=== PATIENT | female | born 1950 | race Caucasian/White ===

== ENCOUNTER 2017-08-13 14:12 | Emergency (ER) | payer OTHER ==
[~2017-08-13] VITALS: Ht 157.5 cm; Wt 81.6 kg
[~2017-08-13 14:12] MED LIST: AMARYL1 MG PO; BACTROBAN OINT.30 GM TOP; BENICAR HCT 12.1 TA2 PO; BENICAR PO; CIPRO 500MG TA500 MG PO; CLEOCIN HCL300 MG PO; GLUMETZA500 MG PO; PHENERGAN25 M1 PO; SYNTHROID0.025 MG PO; ZOFRAN ODT4 MG PO
[2017-08-13 14:39] LABS: ABSOLUTE BASOPHIL COUNT 0.1 /CUMM (0.0-0.2); ABSOLUTE EOSINOPHIL COUNT 0.2 /CUMM (0.0-0.7); ABSOLUTE GRANULOCYTE CT 5.5 /CUMM (1.4-6.5); ABSOLUTE LYMPH COUNT 2.9 /CUMM (1.2-3.4); ABSOLUTE MONOCYTE COUNT 0.5 /CUMM (0.10-0.60); BASOPHIL % 0.6 % (0.0-2.0); EOSINOPHIL % 2.5 % (0-5); GRANULOCYTE % 59.9 % (42.2-75.2); HEMATOCRIT 44.7 % (37-47); MEAN CORPUSCULAR HGB 29.2 PG (27.0-31.0); MEAN CORPUSCULAR HGB CONC 33.5 G/DL (33.0-37.0); MEAN CORPUSCULAR VOLUME 87.2 FL (81.0-99.0); MEAN PLATELET VOLUME 8.9 FL (7.4-10.4); PLATELET COUNT 249 /CUMM (130-400); RBC DISTRIBUTION WIDTH 13.4 % (11.5-14.5); RED BLOOD CELL CT 5.13 /CUMM (4.20-5.40); WHITE BLOOD CELL COUNT 9.2 /CUMM (4.8-10.8)
--- NOTE | 2017-08-13 14:55 | RADIOLOGY REPORT ---
EXAMINATION: XR CHEST CLINICAL INFORMATION: Chest pain COMPARISON: Previous chest x-ray April 2014 TECHNIQUE: 2 views of the chest were obtained. FINDINGS: The cardiac and mediastinal contours are stable. There are median sternotomy wires and prosthetic aortic valve. The lungs are clear. There is no pleural effusion or pneumothorax. There are surgical clips that project over the left lower chest, probably in the left breast. There are degenerative changes of the spine. IMPRESSION: No evidence for acute disease in the chest.
--- NOTE | 2017-08-13 15:46 | ED CARDIAC/CP/PALPITATIONS ---
History of Present Illness General Chief Complaint: Chest Pain Stated Complaint: CHEST PAIN, UPPER BACK PAIN Source: patient Exam Limitations: no limitations Vital Signs & Intake/Output Vital Signs & Intake/Output Vital Signs Date Time Temp Pulse Resp B/P B/P Pulse O2 O2 Flow FiO2 Mean Ox Delivery Rate 08/13 1557 95.0 66 18 144/63 98 Room Air 08/13 1452 98 Room Air 08/13 1420 96.0 78 16 155/81 98 Room Air Allergies Coded Allergies: MDX - Latex (LATEX) (Intermediate, SKIN PROBLEMS 12/15/14) MDX - ASA (aspirin) (ASA (ASPIRIN)) (SOB 12/15/14) MDX - Cephalexin (From KEFLEX) (SOB, GI UPSET, RESP 12/15/14) MDX - Codeine (CODEINE) (SOB 12/15/14) MDX - Contrast Media, Iodine Relate (Contrast Media, Iodine Related) (IVP DYE, SOB AND HIVES 12/15/14) MDX - Hydrocodone (From VICODIN) (SOB 12/15/14) MDX - Propoxyphene (From Propoxyphene-N W/ Apap) (SOB 12/15/14) MDX - Oxycodone (OXYCODONE) (GI UPSET 12/15/14) MDX - Tetracycline (TETRACYCLINE) (GI UPSET, RESP 12/15/14) Reconcile Medications Ciprofloxacin (Cipro) 500 MG TAB 1 TAB PO BID UTI CLINDAMYCIN HCL (Cleocin HCl) 300 MG CAPSULE 1 CAP PO 4 TIMES/DAY abscess Glimepiride (Amaryl) 1 MG TAB 1 MG PO D DM (Reported) Hydrochliorthiazide/Olmesart (Benicar Hct 20-12.5 MG Tablet) 20 MG-12.5 MG TABLET 10 MG PO D PRN HTN (Reported) Levothyroxine (Synthroid) 0.025 MG TAB 50 MCG PO D THYROID (Reported) METFORMIN HCL (Glumetza) 500 MG [id number] 500 MG PO BID DM (Reported) Mupirocin (Bactroban Oint. 2% 30GM) 2 % CREAM..G. 1 SAMARIA TOP TID abscess apply to affected area(s) Olmesartan Medoxomil (Benicar) 5 MG TABLET 10 MG PO DAILY PRN IF NEEDED FOR BLOOD PRESSURE (Reported) Ondansetron (Zofran Odt) 4 MG ODT 1 TAB PO Q6P PRN NAUSEA Promethazine Hydrochloride (Phenergan) 25 MG TAB 1 TAB PO Q8P PRN NAUSEA Triage Note: 67 Y/O FEMALE C/O EPISODES OF CHEST PAIN SINCE THIS AM. STATES PAIN COMES AND GOES AND ONLY LASTS FOR A SHORT TIME WHEN IT OCCURS. STATES PAIN IS FELT IS CENTER CHEST WHEN IT HAPPENS, "IT FEELS LIKE HEART BURN BUT [place] NEVER HAD HEART BURN SO I DONT KNOW". PT DENIES CURRENT PAIN. DENIES SOB. DENIES NAUSEA, +BELCHING. DENIES DIAPHORESIS. EKG COMPLETED. BLOODWORK DRAWN BY [facility] Triage Nurses Notes Reviewed? yes HPI: 67-year-old female presents emergency department complaining of an episode of substernal chest pain this morning. Patient states the episode occurred around 9 AM. It woke her up from sleeping. It only lasted a few seconds. It did not radiate. She had a similar episode one week ago so she figured it was time to be evaluated. Patient has had a previous heart valve replacement approximately 9 years ago and currently has an appointment with her failure analysis engineer in 2 weeks. She is currently a symptomatic. Denies any nausea or vomiting. No fever or chills. No chest pain or shortness of breath. She has no abdominal pain. No leg swelling. Palpitations, or recent travel. (Alan Perkins PA-C) Past History Travel History Traveled to [place] past 21 day No Medical History Any Pertinent Medical History? see below for history Neurological: NONE EENT: NONE Cardiovascular: AORTIC VALVE TRANSPLANT Respiratory: NONE Gastrointestinal: NONE Hepatic: NONE Renal: NONE Musculoskeletal: CERVICAL SPINE FUSING Psychiatric: NONE Endocrine: diabetes, hypothyroidism Blood Disorders: DVT, PLATLET DEFICIENCY Cancer(s): breast cancer Surgical History Surgical History: D+C, CERVICAL SPINE SURGERY Psychosocial History Tobacco Use: Never used Family History Hx Contributory? No (Alan Perkins PA-C) Review of Systems Review of Systems Constitutional: Reports: no symptoms. EENTM: Reports: no symptoms. Respiratory: Reports: no symptoms. Cardiovascular: Reports: see HPI. GI: Reports: no symptoms. Genitourinary: Reports: no symptoms. Musculoskeletal: Reports: no symptoms. Skin: Reports: no symptoms. Neurological/Psychological: Reports: no symptoms. Hematologic/Endocrine: Reports: no symptoms. Immunologic/Allergic: Reports: no symptoms. All Other Systems: Reviewed and Negative (Gregorio VERA,Alan) Physical Exam Physical Exam General Appearance: well developed/nourished, no apparent distress, alert, awake Head: atraumatic, normal appearance Eyes: Bilateral: normal appearance. Ears, Nose, Throat: normal pharynx, normal ENT inspection Neck: supple, No jvd Respiratory: normal breath sounds, chest non-tender, no respiratory distress, quiet respiration, lungs clear Cardiovascular: regular rate/rhythm (No m/r/g) Gastrointestinal: normal bowel sounds, soft, non-tender, no organomegaly Extremities: normal inspection, normal range of motion Neurologic/Psych: alert, oriented x 3, normal gait Skin: intact, normal color Core Measures ACS in differential dx? Yes CVA/TIA Diagnosis No Sepsis Present: No Sepsis Focused Exam Completed? No (Alan Perkins PA-C) Progress Differential Diagnosis: AMI, aortic dissection, atrial fibrillation, costochondritis, hyperkalemia, musculoskeletal pain, pancreatitis, pneumonia, pneumothorax, pulmonary embolism, V-fib/V-Tach, GERD Plan of Care: Orders Procedure Date/time Status TROPONIN LEVEL 08/13 1423 Complete COMPREHENSIVE METABOLIC PANEL 08/13 1423 Complete CBC WITHOUT DIFFERENTIAL 08/13 1423 Complete EKG 08/13 1413 Active Laboratory Tests 08/13/17 1426: Anion Gap 12, Estimated GFR > 60, BUN/Creatinine Ratio 27.1 H, Glucose 179 H, Calcium 9.5, Total Bilirubin 0.5, AST 23, ALT 36, Alkaline Phosphatase 77, Troponin I < 0.01, Total Protein 6.6, Albumin 3.8, Globulin 2.8, Albumin/ Globulin Ratio 1.4, CBC w Diff NO MAN DIFF REQ, RBC 5.13, MCV 87.2, MCH 29.2, MCHC 33.5, RDW 13.4, MPV 8.9, Gran % 59.9, Lymphocytes % 31.1, Monocytes % 5.9, Eosinophils % 2.5, Basophils % 0.6, Absolute Granulocytes 5.5, Absolute Lymphocytes 2.9, Absolute Monocytes 0.5, Absolute Eosinophils 0.2, Absolute Basophils 0.1 Diagnostic Imaging: Viewed by Me: Radiology Read. Discussed w/RAD: Radiology Read. Radiology Impression: PATIENT: KALLIE DIALLO PRESENT AGE: 67 PATIENT ACCOUNT NO: [id number] : 48 LOCATION: [facility] ORDERING PHYSICIAN: Alan Perkins PA-C SERVICE DATE: 08/13/17 EXAM TYPE: RAD - XRY-CHEST XRAY, TWO VIEWS EXAMINATION: XR CHEST CLINICAL INFORMATION: Chest pain COMPARISON: Previous chest x-ray April 2014 TECHNIQUE: 2 views of the chest were obtained. FINDINGS: The cardiac and mediastinal contours are stable. There are median sternotomy wires and prosthetic aortic valve. The lungs are clear. There is no pleural effusion or pneumothorax. There are surgical clips that project over the left lower chest, probably in the left breast. There are degenerative changes of the spine. IMPRESSION: No evidence for acute disease in the chest. DICTATED BY: Rosie Lackey MD DATE/TIME DICTATED:08/13/171449 SHORE WORKING SUPERVISOR:BERNARDA DATE/TIME TRANSCRIBED:08/13/171449 CONFIDENTIAL, DO NOT COPY WITHOUT APPROPRIATE AUTHORIZATION. <Electronically signed in Other Vendor System> SIGNED BY: Rosie Lackey MD 08/13/171454 Initial ED EKG: NSR at 74 bpm. Normal axis. No acute ST/T wave abnormalities. Prior EKG: unchanged Comments: This is a 67-year-old female with report of a very brief few seconds of substernal chest pain this morning. She has been asymptomatic here in the emergency department. The pain did not radiate. It was nonexertional. It woke her up from sleep. Her EKG is unchanged from previous with normal sinus rhythm at 74 beats a minute. Her troponin is negative. Other lab work is nonactionable. Chest x-ray is normal. No concern for ACS/MA. No evidence of pneumonia. Doubt PE, dissection. Will have patient follow-up with her failure analysis engineer within 2 days. Encouraged her to return to the emergency department immediately with any new or worsening symptoms. She is in agreement plan of care. Discussed with Dr. Leal and he is in agreement with plan of care as well. (Gregorio VERA,Alan) Departure Departure Disposition: HOME OR SELF CARE Condition: Stable Clinical Impression Primary Impression: Chest pain Referrals: Braulio FREEMAN,Azar Williamson (PCP/Family) Additional Instructions: Your blood work was normal. Your EKG was unchanged from your previous. You should plan to follow-up with her failure analysis engineer this week. You should return to the emergency department immediately for any new or worsening symptoms. Departure Forms: Customer Survey General Discharge Information (Alan Perkins PA-C) PA/PATIENT SUPPORT TECH Co-Sign Statement Statement: ED Attending supervision documentation- x I saw and evaluated the patient. I have also reviewed all the pertinent lab results and diagnostic results. I agree with the findings and the plan of care as documented in the PA's/PATIENT SUPPORT TECH's documentation. [] I have reviewed the ED Record and agree with the PA's/PATIENT SUPPORT TECH's documentation. [] Additions or exceptions (if any) to the PAs/PATIENT SUPPORT TECH's note and plan are summarized below: [] (Mel FREEMAN,Abner) Critical Care Note Critical Care Note Critical Care Time: non-applicable (Gregorio VERA,Alan)
[2017-08-13 15:57] VITALS: BP 144/63
== END 2017-08-13 16:23 ==
LOC: ERH 14:12
PROVIDERS: Emergency Medicine
DX: R07.2 Precordial pain (principal); E11.9 Type 2 diabetes mellitus without complications; E03.9 Hypothyroidism, unspecified; Z79.84 Long term (current) use of oral hypoglycemic drugs
CPT/HCPCS: 71046; 93005; 93010

== ENCOUNTER 2017-08-20 17:25 | Emergency (ER) | payer OTHER ==
[~2017-08-20] VITALS: Ht 157.5 cm; Wt 79.4 kg
--- NOTE | 2017-08-20 20:08 | ED CARDIAC/CP/PALPITATIONS ---
History of Present Illness General Chief Complaint: Chest Pain Stated Complaint: CP, LET ARM PAIN Source: patient, family, old records Exam Limitations: no limitations Vital Signs & Intake/Output Vital Signs & Intake/Output Vital Signs Date Time Temp Pulse Resp B/P B/P Pulse O2 O2 Flow FiO2 Mean Ox Delivery Rate 08/21 2019 72 20 180/75 98 Room Air 08/20 1754 97.3 73 18 171/82 97 Room Air ED Intake and Output 08/21 0000 08/20 1200 Intake Total 0 Output Total Balance 0 Intake, Oral 0 Patient 175 lb Weight Weight Reported by Patient Measurement Method Allergies Coded Allergies: MDX - Latex (LATEX) (Intermediate, SKIN PROBLEMS 12/15/14) MDX - ASA (aspirin) (ASA (ASPIRIN)) (SOB 12/15/14) MDX - Cephalexin (From KEFLEX) (SOB, GI UPSET, RESP 12/15/14) MDX - Codeine (CODEINE) (SOB 12/15/14) MDX - Contrast Media, Iodine Relate (Contrast Media, Iodine Related) (IVP DYE, SOB AND HIVES 12/15/14) MDX - Hydrocodone (From VICODIN) (SOB 12/15/14) MDX - Propoxyphene (From Propoxyphene-N W/ Apap) (SOB 12/15/14) MDX - Oxycodone (OXYCODONE) (GI UPSET 12/15/14) MDX - Tetracycline (TETRACYCLINE) (GI UPSET, RESP 12/15/14) Reconcile Medications Ciprofloxacin (Cipro) 500 MG TAB 1 TAB PO BID UTI CLINDAMYCIN HCL (Cleocin HCl) 300 MG CAPSULE 1 CAP PO 4 TIMES/DAY abscess Glimepiride (Amaryl) 1 MG TAB 1 MG PO D DM (Reported) Hydrochliorthiazide/Olmesart (Benicar Hct 20-12.5 MG Tablet) 20 MG-12.5 MG TABLET 10 MG PO D PRN HTN (Reported) Levothyroxine (Synthroid) 0.025 MG TAB 50 MCG PO D THYROID (Reported) METFORMIN HCL (Glumetza) 500 MG [id number] 500 MG PO BID DM (Reported) Mupirocin (Bactroban Oint. 2% 30GM) 2 % CREAM..G. 1 SAMARIA TOP TID abscess apply to affected area(s) Olmesartan Medoxomil (Benicar) 5 MG TABLET 10 MG PO DAILY PRN IF NEEDED FOR BLOOD PRESSURE (Reported) Ondansetron (Zofran Odt) 4 MG ODT 1 TAB PO Q6P PRN NAUSEA Promethazine Hydrochloride (Phenergan) 25 MG TAB 1 TAB PO Q8P PRN NAUSEA Triage Note: PT STATES SHE HAD CHEST PAIN AND LEFT ARM PAIN. PT STATES SHE WAS HERE LAST SUNDAY FOR THE SAME THING BUT LAST TIME SHE DID NOT HAVE ARM OR BACK PAIN. PT STATES SHE HAD A VALVUE REPLACEMENT AND WAS TOLD BY DR. CALLAHAN TO COME TO ED. PT STATES PAIN IN BACK INCREASES WITH DEEP INSPIRATION. PT STATES IT ALS HURTS WHEN SHE MOVES HER ARM. Triage Nurses Notes Reviewed? yes HPI: Patient states that she was seen last Sunday for chest pain. Patient has a negative workup and then went home. Patient saw her search engine optimizer on Sunday. Patient states that yesterday she developed an achy pain to her left arm. The pain radiates down into her chest and into her back. The pain is constant. Patient states the pain kept her up all night last night. Patient denies any shortness of breath however she does have a history of pulmonary emboli in the . She denies any orthopnea or dyspnea on exertion. The pain is aching in nature. She rates the pain at 7 out of 10. Patient went to a walk in center who called her search engine optimizer who advised to come to the emergency department for evaluation. Past History Travel History Traveled to [place] past 21 day No Medical History Any Pertinent Medical History? see below for history Neurological: NONE EENT: NONE Cardiovascular: AORTIC VALVE TRANSPLANT Respiratory: pulmonary embolism (SEC BCP IN S) Gastrointestinal: NONE Hepatic: NONE Renal: NONE Musculoskeletal: CERVICAL SPINE FUSING Psychiatric: NONE Endocrine: diabetes, hypothyroidism Blood Disorders: DVT, PLATLET DEFICIENCY Cancer(s): breast cancer Surgical History Surgical History: D+C, CERVICAL SPINE SURGERY Psychosocial History What is your primary language Turkmen Tobacco Use: Never used ETOH Use: denies use Illicit Drug Use: denies illicit drug use Family History Hx Contributory? No Review of Systems Review of Systems Constitutional: Reports: no symptoms. EENTM: Reports: no symptoms. Respiratory: Reports: no symptoms. Cardiovascular: Reports: see HPI, chest pain. GI: Reports: no symptoms. Genitourinary: Reports: no symptoms. Musculoskeletal: Reports: see HPI. Skin: Reports: no symptoms. Neurological/Psychological: Reports: no symptoms. Hematologic/Endocrine: Reports: no symptoms. Immunologic/Allergic: Reports: no symptoms. All Other Systems: Reviewed and Negative Physical Exam Physical Exam General Appearance: well developed/nourished, alert, awake, anxious, mild distress Head: atraumatic, normal appearance Eyes: Bilateral: PERRL, EOMI. Ears, Nose, Throat: normal pharynx, normal ENT inspection, hearing grossly normal Neck: normal inspection, supple, full range of motion Respiratory: normal breath sounds, chest non-tender, no respiratory distress, lungs clear Cardiovascular: regular rate/rhythm, normal peripheral pulses Gastrointestinal: normal bowel sounds, soft, non-tender, no organomegaly Back: normal inspection, normal range of motion Extremities: TENDER OVER BRACHIORADIALAS TENDON Neurologic/Psych: no motor/sensory deficits, awake, alert, oriented x 3, normal gait, normal mood/affect Skin: intact, normal color, warm/dry Core Measures ACS in differential dx? No CVA/TIA Diagnosis No Sepsis Present: No Sepsis Focused Exam Completed? No Progress Differential Diagnosis: AMI, costochondritis, musculoskeletal pain, myocarditis, pericarditis, pneumonia, pneumothorax, pulmonary embolism Plan of Care: Orders Procedure Date/time Status TROPONIN LEVEL 08/21 2007 Complete D-DIMER 08/21 2007 Complete COMPREHENSIVE METABOLIC PANEL 08/21 2007 Complete CBC WITHOUT DIFFERENTIAL 08/21 2007 Complete EKG 08/20 1726 Active Laboratory Tests 08/20/17 2014: Anion Gap 14, Estimated GFR > 60, BUN/Creatinine Ratio 27.1 H, Glucose 201 H, Calcium 9.7, Total Bilirubin 0.4, AST 20, ALT 26, Alkaline Phosphatase 75, Troponin I < 0.01, Total Protein 6.7, Albumin 3.9, Globulin 2.8, Albumin/ Globulin Ratio 1.4, D-Dimer High Sensitivty < 200, CBC w Diff NO MAN DIFF REQ, RBC 5.05, MCV 87.2, MCH 29.7, MCHC 34.1, RDW 13.7, MPV 8.7, Gran % 61.0, Lymphocytes % 30.0, Monocytes % 6.1, Eosinophils % 2.1, Basophils % 0.8, Absolute Granulocytes 8.0 H, Absolute Lymphocytes 3.9 H, Absolute Monocytes 0.8 H, Absolute Eosinophils 0.3, Absolute Basophils 0.1 Diagnostic Imaging: Viewed by Me: Radiology Read. Discussed w/RAD: Radiology Read. CXR Impression: PATIENT: KALLIE DIALLO PRESENT AGE: 67 PATIENT ACCOUNT NO: [id number] : 48 LOCATION: [facility] ORDERING PHYSICIAN: Deacon Byers MD SERVICE DATE: 08/20/17 EXAM TYPE: RAD - XRY-CHEST XRAY, TWO VIEWS EXAMINATION: XR CHEST CLINICAL INFORMATION : Chest pain COMPARISON: Multiple previous chest x-rays with the most recent chest x-ray dated 08/13/2017. TECHNIQUE: 2 views of the chest were obtained. FINDINGS: The cardiomediastinal silhouette is stable with normal cardiac size. The sternotomy wires are unchanged in configuration and appear intact. Mediastinal surgical clips and prosthetic heart valve are unchanged in configuration. Multiple surgical clips are noted projecting over the left lower chest/upper abdomen. Surgical clips in the right upper abdominal quadrant from prior cholecystectomy. The lungs are mildly hypoexpanded however clear. No pleural effusions or pneumothorax. Pulmonary vascularity is normal. Mild degenerative changes in the spine. IMPRESSION: No acute pulmonary process. DICTATED BY: Britany Steele MD DATE/TIME DICTATED:08/20/172109 TELEPHONE SERVICE REPRESENTATIVE: BERNARDA DATE/TIME TRANSCRIBED:08/20/172109 CONFIDENTIAL, DO NOT COPY WITHOUT APPROPRIATE AUTHORIZATION. <Electronically signed in Other Vendor System> SIGNED BY: Britany Steele MD 08/20/172115 Initial ED EKG: NSR, no ST T wave changes Prior EKG: unchanged Comments: PT HAS BEEN UPDATED ON LAB AND CXR RESULTS. QUESTIONS HAVE BEEN ANSERED. Departure Departure Disposition: HOME OR SELF CARE Condition: Stable Clinical Impression Primary Impression: Tendonitis Secondary Impressions: Bursitis Referrals: Beckie FREEMAN,Cameron Ramsey MD,Azar Williamson (PCP/Family) Additional Instructions: FOLLOW UP WITH ORTHO USE ICE RETURN IF SYMP[TOMS WORSEN OR FOR ANY CONCERNS Departure Forms: Customer Survey General Discharge Information Critical Care Note Critical Care Note Critical Care Time: non-applicable
[2017-08-20 20:20] VITALS: BP 180/75
[2017-08-20 20:30] LABS: ABSOLUTE BASOPHIL COUNT 0.1 /CUMM (0.0-0.2); ABSOLUTE EOSINOPHIL COUNT 0.3 /CUMM (0.0-0.7); ABSOLUTE LYMPH COUNT 3.9 /CUMM (1.2-3.4); ABSOLUTE MONOCYTE COUNT 0.8 /CUMM (0.10-0.60); BASOPHIL % 0.8 % (0.0-2.0); EOSINOPHIL % 2.1 % (0-5); HEMATOCRIT 44.1 % (37-47); MEAN CORPUSCULAR HGB 29.7 PG (27.0-31.0); MEAN CORPUSCULAR HGB CONC 34.1 G/DL (33.0-37.0); MEAN CORPUSCULAR VOLUME 87.2 FL (81.0-99.0); MEAN PLATELET VOLUME 8.7 FL (7.4-10.4); PLATELET COUNT 261 /CUMM (130-400); RBC DISTRIBUTION WIDTH 13.7 % (11.5-14.5); RED BLOOD CELL CT 5.05 /CUMM (4.20-5.40); WHITE BLOOD CELL COUNT 13.1 /CUMM (4.8-10.8)
--- NOTE | 2017-08-20 21:16 | RADIOLOGY REPORT ---
EXAMINATION: XR CHEST CLINICAL INFORMATION: Chest pain COMPARISON: Multiple previous chest x-rays with the most recent chest x-ray dated 08/13/2017. TECHNIQUE: 2 views of the chest were obtained. FINDINGS: The cardiomediastinal silhouette is stable with normal cardiac size. The sternotomy wires are unchanged in configuration and appear intact. Mediastinal surgical clips and prosthetic heart valve are unchanged in configuration. Multiple surgical clips are noted projecting over the left lower chest/upper abdomen. Surgical clips in the right upper abdominal quadrant from prior cholecystectomy. The lungs are mildly hypoexpanded however clear. No pleural effusions or pneumothorax. Pulmonary vascularity is normal. Mild degenerative changes in the spine. IMPRESSION: No acute pulmonary process.
== END 2017-08-20 21:27 ==
LOC: ERH 17:25
PROVIDERS: Emergency Medicine
DX: M71.88 Other specified bursopathies, other site (principal); M77.9 Enthesopathy, unspecified; R07.9 Chest pain, unspecified
CPT/HCPCS: 71046; 93005; 93010